=== PATIENT | male | born 1975 | race African-American/Black ===

== ENCOUNTER 2017-03-02 11:20 | Emergency (ER) | payer BC ==
[~2017-03-02] VITALS: Ht 180.3 cm; Wt 78.0 kg
[~2017-03-02 11:20] MED LIST: ACET500C5 PO; ALPR0.25 PO
[2017-03-02 11:30] VITALS: Ht 180.3 cm; Wt 78.0 kg
[2017-03-02] MEDS ORDERED: LORA-441 PO (12:09)
[2017-03-02] MEDS ORDERED: LORAZEPAM 0.5 MG TAB PO ONE (12:30)
[2017-03-02 12:34] VITALS: BP 134/65; PULSE 77; RESP 18; TEMP 98.1
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
== END 2017-03-02 12:37 | disposition home or self-care (01) ==
LOC: E/R 11:20
DX: F41.9 Anxiety disorder, unspecified (principal); R40.2252 Coma scale, best verbal response, oriented, at arrival to emergency department; R40.2142 Coma scale, eyes open, spontaneous, at arrival to emergency department; R40.2362 Coma scale, best motor response, obeys commands, at arrival to emergency department
CPT/HCPCS: 93005; 99283